=== PATIENT | female | born 1995 | race African-American/Black ===

== ENCOUNTER 2020-01-05 21:23 | Emergency (ER) | payer OTHER ==
[~2020-01-05] VITALS: Ht 157.5 cm; Wt 43.6 kg
[2020-01-06 00:29] LABS: BASO # 0.1 10^3/uL (0.0-0.2); BASO % 0.7 % (0.0-1.0); EOS # 0.2 10^3/uL (0.0-0.5); EOS % 2.5 % (0.0-3.0); HEMATOCRIT 31.1 % (36.0-47.0); HEMOGLOBIN 9.9 g/dl (12.0-15.5); LYMPH # 2.3 10^3/uL (1.5-5.0); LYMPH % 32.5 % (24.0-44.0); MEAN CORPUSCULAR HEMOGLOBIN 21.1 pg (27.0-33.0); MEAN CORPUSCULAR HGB CONC 31.8 g/dl (32.0-36.5); MEAN CORPUSCULAR VOLUME 66.3 fl (80.0-96.0); MONO # 0.6 10^3/uL (0.0-0.8); MONO % 8.8 % (0.0-5.0); NEUTROPHILS # 3.9 10^3/uL (1.5-8.5); NEUTROPHILS % 55.2 % (36.0-66.0); PLATELET COUNT, AUTOMATED 216 10^3/uL (150-450); RED BLOOD COUNT 4.69 10^6/uL (4.00-5.40); WHITE BLOOD COUNT 7.1 10^3/uL (4.0-10.0)
[2020-01-06 00:49] LABS: BLOOD UREA NITROGEN 18 MG/DL (7-18); CALCIUM LEVEL 9.2 MG/DL (8.5-10.1); CARBON DIOXIDE LEVEL 25 MEQ/L (21-32); CHLORIDE LEVEL 110 MEQ/L (98-107); CREATININE FOR GFR 0.76 MG/DL (0.55-1.30); GLOMERULAR FILTRATION RATE > 60.0 (>60); GLUCOSE, FASTING 83 MG/DL (70-100); POTASSIUM SERUM 4.2 MEQ/L (3.5-5.1); SODIUM LEVEL 139 MEQ/L (136-145)
[2020-01-06 01:00] LABS: HCG, SERUM QUALITATIVE POSITIVE (NEGATIVE)
[2020-01-06] MEDS ORDERED: ACETAMINOPHEN SUSP DYE FREE 160 MG/5 ML UDC PO ONE (01:00)
[2020-01-06 02:26] LABS: HCG, SERUM QUANTITATIVE 16555 MIU/ML
[2020-01-06 02:36] VITALS: BP 122/68
== END 2020-01-06 02:37 | disposition home or self-care (01) ==
LOC: M ED 21:23
DX: O26.851 Spotting complicating pregnancy, first trimester (principal); O26.891 Other specified pregnancy related conditions, first trimester; R10.2 Pelvic and perineal pain; O99.011 Anemia complicating pregnancy, first trimester; O99.511 Diseases of the respiratory system complicating pregnancy, first trimester; O99.351 Diseases of the nervous system complicating pregnancy, first trimester; Z3A.01 Less than 8 weeks gestation of pregnancy

== ENCOUNTER 2020-02-11 13:38 | Emergency (ER) | payer OTHER ==
[~2020-02-11] VITALS: Ht 157.5 cm; Wt 43.2 kg
[2020-02-11] MEDS ORDERED: EPIP0.3I2 IM (13:54)
[2020-02-11] MEDS ORDERED: ACETAMINOPHEN TAB 650MG DOSE (2X325MG) PO ONE (14:15)
[2020-02-11] MEDS ORDERED: ONDANSETRON 4MG/2ML VIAL IV ONE (14:15)
[2020-02-11] MEDS ORDERED: NS 1,000 ML IV ONE (14:15)
[2020-02-11 14:17] LABS: BASO % 0.4 % (0.0-1.0); EOS # 0.1 10^3/uL (0.0-0.5); EOS % 2.2 % (0.0-3.0); HEMATOCRIT 31.2 % (36.0-47.0); HEMOGLOBIN 9.9 g/dl (12.0-15.5); LYMPH # 1.5 10^3/uL (1.5-5.0); LYMPH % 28.8 % (24.0-44.0); MEAN CORPUSCULAR HGB CONC 31.7 g/dl (32.0-36.5); MEAN CORPUSCULAR VOLUME 66.1 fl (80.0-96.0); MONO # 0.5 10^3/uL (0.0-0.8); MONO % 8.9 % (0.0-5.0); NEUTROPHILS % 59.3 % (36.0-66.0); PLATELET COUNT, AUTOMATED 172 10^3/uL (150-450); RED BLOOD COUNT 4.72 10^6/uL (4.00-5.40)
[2020-02-11 14:56] LABS: ALBUMIN 3.4 GM/DL (3.2-5.2); ALT/SGPT 10 U/L (12-78); BILIRUBIN,DIRECT < 0.1 MG/DL (0.0-0.2); BILIRUBIN,TOTAL 0.1 MG/DL (0.2-1.0); BLOOD UREA NITROGEN 8 MG/DL (7-18); CALCIUM LEVEL 8.6 MG/DL (8.5-10.1); CARBON DIOXIDE LEVEL 23 MEQ/L (21-32); CHLORIDE LEVEL 108 MEQ/L (98-107); CREATININE FOR GFR 0.51 MG/DL (0.55-1.30); GLOMERULAR FILTRATION RATE > 60.0 (>60); GLUCOSE, FASTING 76 MG/DL (70-100); HCG, SERUM QUANTITATIVE 89654 MIU/ML; POTASSIUM SERUM 3.9 MEQ/L (3.5-5.1); SODIUM LEVEL 137 MEQ/L (136-145); TOTAL PROTEIN 6.5 GM/DL (6.4-8.2)
--- NOTE | 2020-02-11 15:49 | REPVR ---
PROCEDURE INFORMATION: Exam: US First Trimester, Transabdominal Exam date and time: 02/11/2020 3:33 PM Age: 24 years old Clinical indication: Lmp or gestational age (in weeks): 11; Antepartum complications; Other: Spotting; ; Additional info: Vaginal bleeding TECHNIQUE: Imaging protocol: Real-time transabdominal obstetrical ultrasound of the maternal pelvis and a first trimester , less than 14 weeks 0 days, with image documentation. COMPARISON: No relevant prior studies available. FINDINGS: Gestation: Single live intrauterine . Embryonic/ heart rate: The heart rate was measured to be 152 bpm. BIOMETRY: Gestational age (AUA): Gestational age as measured by crown-rump length is 11 weeks 6 days. MATERNAL: Right adnexa: Right ovary 1.9 x 1.6 x 1.6 cm. Left adnexa: There is a 1.2 cm simple appearing cyst within the left ovary. Left ovary 2.4 x 3.7 x 2.1 cm. IMPRESSION: 1. Single live intrauterine . 2. Gestational age as measured by crown-rump length is 11 weeks 6 days. Electronically signed by: Keon Mackey On 02/11/2020 15:48:32 PM
[2020-02-11 16:05] VITALS: BP 120/56
[2020-02-11] MEDS ORDERED: ACETAMINOPHEN 325 MG TAB PO ONE (16:15)
== END 2020-02-11 16:20 | disposition home or self-care (01) ==
LOC: EDBD 13:38 → M ED 13:38
DX: O20.8 Other hemorrhage in early pregnancy (principal); Z3A.11 11 weeks gestation of pregnancy; Z87.59 Personal history of other complications of pregnancy, childbirth and the puerperium
CPT/HCPCS: 76801; 80048; 80076; 84702; 85025; 86850; 86900; 86901; 96361; 96374; 99284; J2405

== ENCOUNTER 2020-02-29 14:33 | Emergency (ER) | payer OTHER ==
[~2020-02-29] VITALS: Ht 157.5 cm; Wt 44.8 kg
[2020-02-29 14:33] VITALS: BP 111/58
[~2020-02-29 14:33] MED LIST: EPIP0.3I2 IM
[2020-02-29] MEDS ORDERED: PREN27TA3 (14:43)
[2020-02-29] MEDS ORDERED: ACETAMINOPHEN 500 MG TAB As Ordered ONE (16:43)
[2020-02-29] MEDS ORDERED: ACETAMINOPHEN 500 MG TAB PO ONE (16:45)
[2020-02-29] MEDS ORDERED: AMOX500C PO (17:22)
[2020-02-29] MEDS ORDERED: AMOXICILLIN 500 MG CAP PO ONE (17:30)
== END 2020-02-29 18:25 | disposition home or self-care (01) ==
LOC: M ED 14:33
DX: J02.0 Streptococcal pharyngitis (principal); J45.909 Unspecified asthma, uncomplicated; D57.3 Sickle-cell trait; Z91.02 Food additives allergy status; Z87.01 Personal history of pneumonia (recurrent); Z87.09 Personal history of other diseases of the respiratory system
CPT/HCPCS: 87880; 99283; U0003

== ENCOUNTER 2020-06-13 20:27 | Outpatient (CLI) | payer OTHER ==
[~2020-06-13] VITALS: Ht 157.5 cm; Wt 46.3 kg
[~2020-06-13 20:27] MED LIST changes: +AMOX500C PO; +PREN27TA3
[2020-06-13 20:34] VITALS: BP 106/53
[2020-06-13 22:38] LABS: APPEARANCE, URINE CLEAR (CLEAR); BACTERIA, URINE AUTO NEGATIVE (NEGATIVE); BILIRUBIN, URINE AUTO NEGATIVE (NEGATIVE); BLOOD, URINE BLOOD 1+ (NEGATIVE); COLOR, URINE STRAW (YELLOW); GLUCOSE, URINE (UA) AUTO NEGATIVE (NEGATIVE); KETONE, URINE AUTO TRACE mg/dL (NEGATIVE); LEUKOCYTE ESTERASE, URINE AUTO NEGATIVE (NEGATIVE); NITRITE, URINE AUTO NEGATIVE (NEGATIVE); PROTEIN, URINE AUTO NEGATIVE (NEGATIVE); RBC, URINE AUTO 1 /HPF (0-3); SPECIFIC GRAVITY URINE AUTO 1.004 (1.002-1.035); SQUAMOUS EPITHELIAL CELL UR AU 0 /HPF (0-6); UROBILINOGEN, URINE AUTO 0.2 mg/dL (0.0-2.0); WBC, URINE AUTO 0 /HPF (0-3)
--- NOTE | 2020-06-20 11:15 | IPNPDOC ---
Text Note Date of Service The patient was seen on 06/13/20. LATE ENTRY DUE TO ENCOUNTER NOTE FILED ON WRONG PATIENT CHART NOTE The patient was seen on 06/13/20. NOTE 22yo at 28+5wks presenting to L&D for c/o gush of fluid at 1930 and onset of ctx's. She reports the ctx's actually started 2 days ago after she traveled by bus from [place]. She has not been seen for care since 03/29/2020 at 17w6d as she reports that she has been in [place]. Denies DFM or VB. Reports she was recently treated for BV and yeast infections with antibiotics and diflucan that she finished earlier this week Vitals: normotensive, afebrile NST: appropriate for gestational age Gracey: initially noted to have irregular ctx's that resolved with IV fluid hydration PE: Gen: patient appearing anxious resting in bed, in NAD, AAOx3 HEENT: NC/AT, airway patent and self-maintained RESP: no exaggerated respiratory effort appreciated CARDS: well-perfused, no edema : no pooling, neg valsalva, no abnml vaginal discharge, SVE closed/thick/high Ext: no edema, no calf tenderness Labs: microscopy negative UA: negative TAUS: breech presentation, anterior/fundal placenta, +FM, DEIRDRE 18.3cm, +FCA seen A/P: 22yo at 28+5wks presenting for c/o LOF and ctx's. Patient found to have intact membranes on clinical examination. Reassuring status. Ctx's resolved with IV hydration and reassuring that cervix was closed on examination. Patient counseled on ensuring adequate hydration and encouraged pelvic rest Patient has had poor care due to lack of attendance to appointments, counseled to schedule COB appt in the next week Patient counseled on PTL precautions, FKCs Patient dispositioned home in stable condition. All questions answered. Med rec done. TOSHA CAICEDO DO Jun 13, 2020 22:54 TOSHA CAICEDO DO Jun 20, 2020 11:15
== END 2020-06-13 23:00 | disposition home or self-care (01) ==
LOC: M LDO 20:27 → M LDI 20:32 → UNDOADMIN 20:32 → M LDO 23:00
DX: O47.03 False labor before 37 completed weeks of gestation, third trimester (principal); Z79.2 Long term (current) use of antibiotics
CPT/HCPCS: 76815; 81001; 87086; G0378; G0463

== ENCOUNTER 2020-06-30 16:08 | Outpatient (CLI) | payer OTHER ==
[~2020-06-30] VITALS: Ht 157.5 cm; Wt 49.5 kg
[2020-06-30 16:28] VITALS: BP 106/57
[2020-06-30 17:03] LABS: HEMATOCRIT 27.5 % (36.0-47.0); HEMOGLOBIN 8.6 g/dl (12.0-15.5); MEAN CORPUSCULAR HEMOGLOBIN 21.3 pg (27.0-33.0); MEAN CORPUSCULAR HGB CONC 31.3 g/dl (32.0-36.5); MEAN CORPUSCULAR VOLUME 68.2 fl (80.0-96.0); PLATELET COUNT, AUTOMATED 151 10^3/uL (150-450); RED BLOOD COUNT 4.03 10^6/uL (4.00-5.40); WHITE BLOOD COUNT 6.4 10^3/uL (4.0-10.0)
[2020-06-30 17:05] LABS: APPEARANCE, URINE HAZY (CLEAR); BACTERIA, URINE AUTO 1+ (NEGATIVE); BILIRUBIN, URINE AUTO NEGATIVE (NEGATIVE); BLOOD, URINE BLOOD NEGATIVE (NEGATIVE); COLOR, URINE YELLOW (YELLOW); GLUCOSE, URINE (UA) AUTO NEGATIVE (NEGATIVE); KETONE, URINE AUTO NEGATIVE (NEGATIVE); LEUKOCYTE ESTERASE, URINE AUTO TRACE (NEGATIVE); MUCUS, URINE SMALL (NEGATIVE); NITRITE, URINE AUTO NEGATIVE (NEGATIVE); PROTEIN, URINE AUTO NEGATIVE (NEGATIVE); RBC, URINE AUTO 0 /HPF (0-3); SPECIFIC GRAVITY URINE AUTO 1.016 (1.002-1.035); SQUAMOUS EPITHELIAL CELL UR AU 6 /HPF (0-6); WBC, URINE AUTO 1 /HPF (0-3)
[2020-06-30 17:25] LABS: ALBUMIN 2.7 GM/DL (3.2-5.2); ALT/SGPT 17 U/L (12-78); BILIRUBIN,TOTAL 0.2 MG/DL (0.2-1.0); BLOOD UREA NITROGEN 7 MG/DL (7-18); CARBON DIOXIDE LEVEL 24 MEQ/L (21-32); CHLORIDE LEVEL 111 MEQ/L (98-107); CREATININE FOR GFR 0.81 MG/DL (0.55-1.30); GLOMERULAR FILTRATION RATE > 60.0 (>60); GLUCOSE, FASTING 83 MG/DL (70-100); SODIUM LEVEL 140 MEQ/L (136-145); TOTAL PROTEIN 5.8 GM/DL (6.4-8.2)
[2020-06-30] MEDS ORDERED: FLUCONAZOLE 50MG TABLET PO ONE (18:10)
--- NOTE | 2020-06-30 18:10 | IPNPDOC ---
Obstetrical Progress Note Date of Service Jun 30, 2020 Subjective Patient presents today for vaginal discharge and cramps. She reports she has had yellow mucous discharge x1wk that has no odors. She has had cramps since last night that occur every 10 minutes and are painful. She denied VB, LOF, decreased FM. She denied n/v/d, cp, sob, padron, visual changes, f/c, urinary sx. Objective Vital Signs Date Time Temp Pulse Resp B/P (MAP) Pulse Ox O2 Delivery O2 Flow Rate FiO2 06/30/20 16:28 98.6 90 16 106/57 (73) Assessment Heart Rate (FHR): 130 Variability: Moderate Accelerations: Positive Decelerations: None Heart Rate Tracing: Category I Tocometer Contractions: Yes Frequency: irregular Sterile Vaginal Examination Dilation: 1cm Station: -3 Cervical Consistency: Firm Cervical Position: Posterior Postion/Presentation: Breech presentation (by US) Assessment and Plan Additional Comments 24yo at 31+1 presents for vaginal discharge, contractions, and loose stool since last night. VS normal. CAT I tracing. SVE 1/T/H and unchanged on 2h repeat. JASMIN/WP with +budding yeast. UA WNL. GC negative. CBC/CMP WNL. UCX/GBS sent. CL 3.6cm without funneling or changes with valsalva. TAUS with MVP 4.5cm baby srhuthi breech. PTL unlikely at this time. As she is afebrile and has normal electrolytes and no signs of dehydration will continue to monitor loose stool as outpatient. Patient notably has a complicated (reported sickle cell disease with trait on testing but report of prior crisis and IOL for sickle cell, undweweight, chronic opioid use, seizure disorder, bipolar with history of suicide attempt) and is non-compliant with her appointments. Today she reported she takes no medications (ie not taking her PNV, additional folic acid for her multiple comorbidities requiring it). 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 She did not see the neurologist that was consulted for her seizure disorder. She did not get the labs ordered at her last visit. I did do a CBC today and her Hbg is 8. She reports that she was in [place] so she could not come to appointments. When asked if she received any care there she said no. I reminded her how important it is to the safety of her and her baby that she come to appointments. Not proceeding with the recommendations made for her could result in maternal or harm, , or anomalies. She said she has no appointments scheduled. I told her to call the clinic in the morning to schedule an appointment ABI. - fluconazole for vaginal candidiasis - gave strict PTL return precautions and routine OB return precations - patient also to return if loose stool worsens, educated on hydration and BRAT diet - patient to call and schedule next available appointment in the morning MARLO Sosa DO Jun 30, 2020 18:10
[2020-06-30 19:00] LABS: CHLAMYDIA DNA AMPLIFICATION NEGATIVE (NEGATIVE); GC DNA AMPLIFICATION NEGATIVE (NEGATIVE)
== END 2020-06-30 19:40 | disposition home or self-care (01) ==
LOC: M LDO 16:08
PROVIDERS: ATTEND Obstetrics & Gynecology
DX: O09.33 Supervision of pregnancy with insufficient antenatal care, third trimester (principal); O99.343 Other mental disorders complicating pregnancy, third trimester; O99.323 Drug use complicating pregnancy, third trimester; O99.353 Diseases of the nervous system complicating pregnancy, third trimester; F31.9 Bipolar disorder, unspecified; F11.20 Opioid dependence, uncomplicated; R56.9 Unspecified convulsions; Z3A.31 31 weeks gestation of pregnancy
CPT/HCPCS: 36415; 76815; 80053; 81001; 85027; 87081; 87088; 87186; 87491; 87591; G0378; G0463

== ENCOUNTER 2020-08-01 00:13 | Outpatient (CLI) | payer OTHER ==
[~2020-08-01] VITALS: Ht 157.5 cm; Wt 53.2 kg
[2020-08-01 02:16] VITALS: BP 101/65
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
== END 2020-08-01 03:21 | disposition home or self-care (01) ==
LOC: M LDO 00:13
PROVIDERS: ATTEND Registered Nurse Maternal Newborn
DX: O36.8130 Decreased fetal movements, third trimester, not applicable or unspecified (principal); Z3A.35 35 weeks gestation of pregnancy; O24.419 Gestational diabetes mellitus in pregnancy, unspecified control; O99.013 Anemia complicating pregnancy, third trimester; D64.9 Anemia, unspecified; O26.13 Low weight gain in pregnancy, third trimester
CPT/HCPCS: 59025; G0378; G0463

== ENCOUNTER 2020-08-02 11:25 | Emergency (ER) | payer OTHER ==
[~2020-08-02] VITALS: Ht 157.5 cm; Wt 55.7 kg
[2020-08-02 12:22] LABS: BASO % 0.5 % (0.0-1.0); EOS # 0.2 10^3/uL (0.0-0.5); EOS % 2.4 % (0.0-3.0); HEMATOCRIT 27.1 % (36.0-47.0); HEMOGLOBIN 8.2 g/dl (12.0-15.5); LYMPH # 1.8 10^3/uL (1.5-5.0); LYMPH % 27.2 % (24.0-44.0); MEAN CORPUSCULAR HEMOGLOBIN 20.1 pg (27.0-33.0); MEAN CORPUSCULAR HGB CONC 30.3 g/dl (32.0-36.5); MEAN CORPUSCULAR VOLUME 66.4 fl (80.0-96.0); MONO # 0.7 10^3/uL (0.0-0.8); MONO % 9.8 % (2.0-8.0); NEUTROPHILS # 3.9 10^3/uL (1.5-8.5); PLATELET COUNT, AUTOMATED 147 10^3/uL (150-450); RED BLOOD COUNT 4.08 10^6/uL (4.00-5.40); WHITE BLOOD COUNT 6.7 10^3/uL (4.0-10.0)
[2020-08-02 12:44] LABS: ALBUMIN 2.6 GM/DL (3.2-5.2); ALT/SGPT 19 U/L (12-78); BILIRUBIN,DIRECT < 0.1 MG/DL (0.0-0.2); BILIRUBIN,TOTAL 0.2 MG/DL (0.2-1.0); TOTAL PROTEIN 5.5 GM/DL (6.4-8.2)
[2020-08-02] MEDS ORDERED: ACETAMINOPHEN 325 MG TAB PO ONE (12:45)
--- NOTE | 2020-08-02 13:08 | REP ---
INDICATION: 35+6wks, acute cardiac symptoms, NEEDS GROWTH SCAN. COMPARISON: Only available of study 02/11/2020 at 11 weeks 6 days then. She would be 35 weeks 6 days by a new shallow ultrasound with EDC 08/31/2020 TECHNIQUE: Transabdominal images were evaluated FINDINGS: Scanning demonstrates a viable single intrauterine gestation in a cephalic lie. motion is observed and heart rate is recorded at 149 beats per minute. An anterior, grade III placenta is seen without evidence of previa. Amniotic fluid is subjectively normal and his DEIRDRE 12.5 cm, normal range 7.7-24.9. Closed cervical length is measured at 4.1 cm transabdominally. No extrauterine abnormality is observed. No anomaly is seen. The following anatomic structures are identified and felt to be sonographically unremarkable: Cranial vault, lateral ventricles, choroid plexus, thalami, falx, cerebellum, cisterna magna, lungs, four-chamber heart with regular rhythm, diaphragm, left-sided stomach bubble, abdominal wall, kidneys, spine and three-vessel cord were all seen and unremarkable. There is no evidence of a nuchal cord. Exam was somewhat limited due to advanced gestational age in crowding. Umbilical artery Doppler shows SD ratio 2.59 with normal forward diastolic flow and resistive index of 0.61. Biometry chart: BPD 8.6 cm; 34 weeks 4 days Head circumference 32.1 cm; 36 weeks 1 days Abdominal circumference 32 cm; 36 weeks 0 days Femur length 6.7 cm; 34 weeks 4 days Humeral length 6.0 cm; 34 weeks 5 days HC/AC ratio normal 1.0 Cephalic index normal 0.74 Estimated weight 2860 grams, 5 pounds 14 ounces, 38th percentile for 35 weeks 6 days. IMPRESSION: Viable single intrauterine gestation at 35 weeks 1 days by today's composite sonographic criteria. Expected gestational age estimate based on prior sonography is 35 weeks is 6 days. ORLNADO by prior sonography 08/31/2020. No anomaly. <Electronically signed by Say Aragon > 08/02/20 [id number]
--- NOTE | 2020-08-02 13:36 | IPNPDOC ---
Text Note Date of Service The patient was seen on 08/02/20. NOTE Reviewed ultrasound. HC 24.7%ile, AC 61.4%ile. FL 13.6%ile. EFW 57%ile. No growth restriction. Normal UA dopplers. VS,Fishbone, I+O VS, Fishbone, I+O Laboratory Tests 08/02/20 12:10 Vital Signs Date Time Temp Pulse Resp B/P (MAP) Pulse Ox O2 Delivery O2 Flow Rate FiO2 08/02/20 13:15 90/54 (66) 08/02/20 13:10 80 100 08/02/20 12:23 Room Air 08/02/20 11:33 98.2 20 MARLO CLIFTON DO Aug 02, 2020 13:36
--- NOTE | 2020-08-02 14:29 | REP ---
INDICATION: LUE pain; r/o DVT. COMPARISON: None. TECHNIQUE: Left upper extremity duplex venous sonography. FINDINGS: The internal jugular, axillary, brachial, basilic, and cephalic veins are anechoic and compressible in the left upper extremity. Color flow imaging is homogeneous. Spectral Doppler interrogation is unremarkable. There is no evidence of left upper extremity venous thrombosis. IMPRESSION: Negative left upper extremity duplex venous ultrasound. No evidence of venous thrombosis. <Electronically signed by Mikey Galvin > 08/02/20 [id number]
--- NOTE | 2020-08-02 15:39 | REP ---
INDICATION: SOB. COMPARISON: None. TECHNIQUE: Portable upright chest radiograph. FINDINGS: The EKG monitoring electrodes are seen. There is hair or clothing artifact overlying the right shoulder. The lungs are well inflated and clear. The pleural angles are sharp. Cardiomediastinal silhouette is unremarkable. No acute bony abnormality is seen. IMPRESSION: Negative portable AP chest radiograph. <Electronically signed by Mikey Galvin > 08/02/20 [id number]
[2020-08-02 17:18] VITALS: BP 97/52
--- NOTE | 2020-08-02 18:01 | ECGEPIP ---
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
== END 2020-08-02 17:30 | disposition home or self-care (01) ==
LOC: M ED 11:25
DX: R06.01 Orthopnea (principal); M79.602 Pain in left arm; J45.909 Unspecified asthma, uncomplicated; F31.9 Bipolar disorder, unspecified; R56.9 Unspecified convulsions; Z3A.35 35 weeks gestation of pregnancy; Z91.02 Food additives allergy status

== ENCOUNTER 2020-08-17 19:53 | Inpatient (IN) | payer OTHER ==
[2020-08-17] VITALS (18 sets, daily range): BP systolic 102–123; BP diastolic 51–88
[2020-08-17] MEDS ORDERED: LR 1,000 ML IV SCH (21:10)
[2020-08-17] MEDS ORDERED: LIDOCAINE 1% MDV 20ML VIAL INFIL PRN (21:10)
[2020-08-17] MEDS ORDERED: OXYTOCIN DRIP 30 UNITS in IV 1 EA IV PRN (21:10)
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
[2020-08-17 21:40] LABS: HEMATOCRIT 29.9 % (36.0-47.0); MEAN CORPUSCULAR HEMOGLOBIN 19.4 pg (27.0-33.0); MEAN CORPUSCULAR HGB CONC 30.1 g/dl (32.0-36.5); MEAN CORPUSCULAR VOLUME 64.4 fl (80.0-96.0); PLATELET COUNT, AUTOMATED 167 10^3/uL (150-450); RED BLOOD COUNT 4.64 10^6/uL (4.00-5.40); WHITE BLOOD COUNT 10.6 10^3/uL (4.0-10.0)
[2020-08-17] MEDS ORDERED: FENTANYL 2MCG/ML ROPIVACAINE 0.2% IN 0.9% NACL 100ML IVBAG As Ordered ONE (22:08)
[2020-08-17] MEDS ORDERED: OXYTOCIN 30 UNITS IN 0.9% NaCl 500ML IV BAG (J2590) As Ordered ONE (22:08)
[2020-08-17] MEDS ORDERED: diphenhydrAMINE 50MG/ML VIAL (J1200) IV PRN (23:30)
[2020-08-17] MEDS ORDERED: EPIDURAL/PCA KEYS XX PRN (23:30)
[2020-08-17] MEDS ORDERED: EPIDURAL COMMENT XX SCH (23:30)
[2020-08-17] MEDS ORDERED: REFRIGERATOR IV KEYS XX PRN (23:30)
[2020-08-17] MEDS ORDERED: ONDANSETRON 4MG/2ML VIAL IV PRN (23:30)
[2020-08-17] MEDS ORDERED: FENTANYL/ROPIVACAINE/NACL BAG 100 ML EPIDURAL SCH (23:30)
[2020-08-17] MEDS ORDERED: ePHEDrine SULFATE 25 MG/5 ML(5MG/ML) SYRINGE IV PRN (23:30)
[2020-08-17] MEDS ORDERED: LACTATED RINGER'S 1000 ML IV PRN (23:30)
[2020-08-17] MEDS ORDERED: NALOXONE INJ 0.4MG/1ML VIAL (J2310 PER 1MG) IV PRN (23:30)
[2020-08-18] VITALS (13 sets, daily range): BP systolic 98–134; BP diastolic 50–68
[2020-08-18 00:52] LABS: CORD GAS ABE V -7.5; CORD GAS HCO3 V 18.7 MEQ/L; CORD GAS O2 SAT V 64.8 %; CORD GAS PCO2 V 40.4 mmHg; CORD GAS PH V 7.284 UNITS; CORD GAS PO2 V 30.8 mmHg; CORD GAS SBC V 17.8 MEQ/L
[2020-08-18 00:53] LABS: CORD GAS ABE A -6.6; CORD GAS HCO3 A 21.4 MEQ/L; CORD GAS O2 SAT A 39.8 %; CORD GAS PCO2 A 52.6 mmHg; CORD GAS PH A 7.228 UNITS; CORD GAS PO2 A 22.5 mmHg; CORD GAS SBC A 17.9 MEQ/L
[2020-08-18] MEDS ORDERED: IBUPROFEN 600MG TAB PO PRN (01:10)
[2020-08-18] MEDS ORDERED: DIBUCAINE 1% OINTMENT 30GM TOP PRN (01:10)
[2020-08-18] MEDS ORDERED: DOCUSATE SODIUM 100MG CAPSULE PO PRN (01:10)
[2020-08-18] MEDS ORDERED: ACETAMINOPHEN TAB 650MG DOSE (2X325MG) PO PRN (01:10)
--- NOTE | 2020-08-18 01:33 | DNPDOC ---
[facility] Delivery Note Delivery Note DATE OF DELIVERY: 08/18/20 PREDELIVERY DIAGNOSIS: 38+1/7 weeks' gestation and labor. Category II heart rate tracing. Sickle cell and a-thalassemia carrier. Desire for immediate contraception. POST DELIVERY DIAGNOSIS: Same PROCEDURE: Vacuum assisted vaginal delivery INDUSTRIAL PRODUCTION MANAGER: Dr. Ben Clifton DO ANESTHESIA: epidural ESTIMATED BLOOD LOSS: 200 mL. FINDINGS: 2840g, Score 9/9, nuchal cord times 1 tight. DELIVERY SUMMARY: Ms. Lomax is a 24yo who presented at 38+0 in early labor and was noted to have a CAT II tracing for intermittent prolonged decelerations, variabile decelerations, and late decelerations. She overall had good variability and return to baseline. She rapidly progressed on her own to 6/C/0 and recieved an epidural. She was then ruptured and she rapidly progressed to AL/C/+1. The baby began to have recurrent variable decelerations and 4min deceleration. Decision made to attempt to reduce anterior lip, which was successful. The patient began to push and decelerations to the 30s were noted and return to baseline became increasingly prolonged. At this point I re-discussed with the patient the risks, benefits, and alternatives to an operative delivery and she agreed to the procedure. The baby was determined to be in the DAVEY position. The cervix was determined to be completely dilated and the station was +2. The urethra was cleansed with iodine and the bladder was drained. The vacuum was applied approx 2 finger breaths anterior to the posterior fontanelle and the suction applied to the green zone. Care was taken to ensure vaginal tissue was not entrapped. With good maternal effort the baby was delivered in the DAVEY position, during the pushing process a total of 3 pop-offs occurred (the final being at the time of delivery). Ritgans maneuver was used to aid the remainder of the delivery of the head. A tight nuchal cord x1 was reduced at the perineum. The shoulders and body delivered without difficulty. The baby had good tone, spontaneous movement, and cry. The cord was clamped x2 and cut by the provider. Cord gasses and blood were obtained. The placenta delivered in-tact with ruth downward traction. It was sent for pathology. there were no visible lacerations. The uterus was firm and bleeding from the uterus scant. The anterior lip of the cervix had a small raw area with slight oozing that was reinforced with 3-0 vicryl rapid. The sponge, lap and needle counts were correct. There were no complications and the patient tolerated the procedure well. On examination of the baby a singular circular area of swelling was noted just anterior and slightly to the left of the posterior fontanelle. There were no lacerations or bleeding. BEN CLIFTON DO Aug 18, 2020 01:33
[2020-08-18] MEDS: IBUPROFEN 800 MG TAB PO PRN ×2 (01:42→16:42)
[2020-08-18] MEDS: ACETAMINOPHEN 500 MG TAB PO PRN ×2 (05:32→17:49)
[2020-08-18] MEDS: PRENATAL VITAMINS CHEWABLE TABLET PO SCH (09:30)
[2020-08-18] MEDS: FERROUS SULFATE 325MG TAB PO SCH (09:30)
[2020-08-19 05:49] VITALS: BP 97/54
--- NOTE | 2020-08-19 06:54 | IPNPDOC ---
Progress Note Date of Service: Aug 19, 2020 Progress Note Hanna is a 24 yo G3 now P2 who underwent an uncomplicated VAVD yesterday in the practice director hours after being admitted for early labor and a Cat II FHR tracing. Hanna reports overall feeling well this AM. She is ambulating, voiding, tolerating a regular diet. Her lochia is minimal. Pain is controlled. Vitals - VSS, afebrile, normotensive, non tachycardic General - AAOX3, sitting up in bed, NAD Abdomen - Fundus firm at U-2. No fundal tenderness Extremities - No edema Hanna is doing well and is making an appropriate recovery. Continue routine care. Anticipate discharge home tomorrow. Gaudencio VS, I&O, 24H, Shaggy Vital Signs/I&O Vital Signs Date Time Temp Pulse Resp B/P (MAP) Pulse Ox O2 Delivery O2 Flow Rate FiO2 08/19/20 05:49 98.6 60 18 97/54 (68) 99 Room Air YVES ARREGUIN DO Aug 19, 2020 06:54
[2020-08-19] MEDS: PRENATAL VITAMINS CHEWABLE TABLET PO SCH (08:10)
[2020-08-19] MEDS: FERROUS SULFATE 325MG TAB PO SCH (08:11)
[2020-08-19] MEDS: IBUPROFEN 800 MG TAB PO PRN ×2 (12:10→21:27)
[2020-08-19 18:00] VITALS: BP 104/53
[2020-08-20 06:00] VITALS: BP 102/52
[2020-08-20] MEDS ORDERED: IBUP80TA PO (08:05)
[2020-08-20] MEDS ORDERED: ACET-683 PO (08:05)
--- NOTE | 2020-08-20 08:08 | DS.PDOC ---
Discharge Summary General Date of Admission Aug 17, 2020 at 20:27 Date of Discharge Aug 20, 2020 Discharge Summary HOSPITAL COURSE: Ms. Lomax is a 24 yo G3 now P2 who underwent an uncomplicated VAVD on 18Aug2020 after being admitted for active labor and a Cat II tracing. Her course was unremarkable. On her day of discharge she met all appropriate discharge criteria. She was ambulating, voiding, tolerating a regular diet, and had minimal lochia. DISCHARGE MEDICATIONS: Please see below. ALLERGIES: Please see below. PHYSICAL EXAMINATION ON DISCHARGE: VITAL SIGNS: Please see below. GENERAL: AAOX3, NAD ABDOMINAL EXAMINATION: Fundus firm at U-2. No fundal tenderness EXTREMITIES: No edema PSYCHIATRIC EXAMINATION: Affect appropriate LABORATORY DATA: Please see below. ACTIVITY: Pelvic rest for 6 weeks DIET: Regular DISCHARGE PLAN: Discharge home or to boarder DISPOSITION: Discharge home on 17Aug2020. DISCHARGE INSTRUCTIONS: 1. Nothing in the vagina for 6 weeks ITEMS TO FOLLOWUP ON ON OUTPATIENT: 1. Call to schedule a visit for 6 weeks post delivery DISCHARGE CONDITION: Stable. TIME SPENT ON DISCHARGE: Greater than 20 minutes. Yves Ratliff DO Vital Signs/I&Os Vital Signs Date Time Temp Pulse Resp B/P (MAP) Pulse Ox O2 Delivery O2 Flow Rate FiO2 08/20/20 06:00 98.4 61 18 102/52 (69) 08/19/20 18:00 99 08/19/20 05:49 Room Air Discharge Medications Scheduled PRN Acetaminophen (Acetaminophen) 500 Mg Tablet, 1,000 MG PO Q6HP PRN for PAIN LEVEL 6-10 Ibuprofen (Ibuprofen) 800 Mg Tablet, 800 MG PO Q8HP PRN for PAIN LEVEL 6-10 Miscellaneous Medications Pnv,Calcium 72/Iron/Folic Acid ( Vitamin Plus Low Iron) 1 Each Tablet, (Reported) Allergies Coded Allergies: chocolate flavor (Verified Allergy, Severe, ANAPHYLAXIS, 02/11/20) YVES RATLIFF DO Aug 20, 2020 08:08
[2020-08-20] MEDS: IBUPROFEN 800 MG TAB PO PRN (08:33)
[2020-08-20] MEDS: FERROUS SULFATE 325MG TAB PO SCH (09:00)
[2020-08-20] MEDS: PRENATAL VITAMINS CHEWABLE TABLET PO SCH (09:00)
== END 2020-08-20 11:20 | disposition home or self-care (01) | DRG 807 ==
LOC: M LDO 19:53 → M LDI 20:27 → M OBS 08-18 03:30
PROVIDERS: ADMIT Obstetrics & Gynecology; ATTEND Obstetrics & Gynecology
PROC: 10D07Z6 Extraction of Products of Conception, Vacuum, Via Natural or Artificial Opening (ICD-10-PCS; principal; 2020-08-18)
DX: O69.1XX0 Labor and delivery complicated by cord around neck, with compression, not applicable or unspecified (principal); Z37.0 Single live birth; Z3A.38 38 weeks gestation of pregnancy; O76 Abnormality in fetal heart rate and rhythm complicating labor and delivery; Z91.19 Patient's noncompliance with other medical treatment and regimen; D57.3 Sickle-cell trait; O99.02 Anemia complicating childbirth; Z91.018 Allergy to other foods

== ENCOUNTER 2020-11-09 21:09 | Emergency (ER) | payer OTHER ==
[~2020-11-09] VITALS: Ht 157.5 cm; Wt 45.5 kg
[~2020-11-09 21:09] MED LIST changes: +ACET-683 PO; +IBUP80TA PO
[2020-11-10] MEDS ORDERED: IBUPROFEN 800 MG TAB PO ONE (00:40)
[2020-11-10 01:11] VITALS: BP 118/61
== END 2020-11-10 01:20 | disposition home or self-care (01) ==
LOC: M ED 21:09
DX: B34.1 Enterovirus infection, unspecified (principal); B34.8 Other viral infections of unspecified site; Z91.018 Allergy to other foods

== ENCOUNTER 2020-12-08 11:00 | Emergency (ER) | payer OTHER ==
[~2020-12-08] VITALS: Ht 157.5 cm; Wt 43.6 kg
[2020-12-08 13:12] LABS: BASO % 0.8 % (0.0-1.0); EOS # 0.2 10^3/uL (0.0-0.5); HEMATOCRIT 36.9 % (36.0-47.0); HEMOGLOBIN 11.6 g/dl (12.0-15.5); LYMPH # 1.9 10^3/uL (1.5-5.0); LYMPH % 37.4 % (24.0-44.0); MEAN CORPUSCULAR HEMOGLOBIN 21.6 pg (27.0-33.0); MEAN CORPUSCULAR HGB CONC 31.4 g/dl (32.0-36.5); MEAN CORPUSCULAR VOLUME 68.6 fl (80.0-96.0); MONO # 0.4 10^3/uL (0.0-0.8); MONO % 8.8 % (2.0-8.0); NEUTROPHILS # 2.4 10^3/uL (1.5-8.5); NEUTROPHILS % 48.8 % (36.0-66.0); PLATELET COUNT, AUTOMATED 190 10^3/uL (150-450); RED BLOOD COUNT 5.38 10^6/uL (4.00-5.40)
[2020-12-08 13:39] LABS: BLOOD UREA NITROGEN 12 MG/DL (7-18); CARBON DIOXIDE LEVEL 26 MEQ/L (21-32); CHLORIDE LEVEL 110 MEQ/L (98-107); GLOMERULAR FILTRATION RATE > 60.0 (>60); GLUCOSE, FASTING 70 MG/DL (70-100); HCG, SERUM QUANTITATIVE < 1.0 MIU/ML; POTASSIUM SERUM 3.9 MEQ/L (3.5-5.1); SODIUM LEVEL 143 MEQ/L (136-145)
[2020-12-08 17:11] VITALS: BP 99/54
== END 2020-12-08 17:21 | disposition home or self-care (01) ==
LOC: M ED 11:00
DX: T83.32XA Displacement of intrauterine contraceptive device, initial encounter (principal); Y92.9 Unspecified place or not applicable; Y93.89 Activity, other specified; F31.9 Bipolar disorder, unspecified; Z91.018 Allergy to other foods

== ENCOUNTER 2021-02-11 19:55 | Emergency (ER) | payer OTHER ==
[~2021-02-11] VITALS: Ht 157.5 cm; Wt 44.5 kg
[2021-02-11 19:56] VITALS: BP 100/59
[2021-02-11] MEDS ORDERED: ALBU83IN NEB (20:50)
== END 2021-02-12 05:41 | disposition left against medical advice (07) ==
LOC: M ED 19:55
DX: Z53.21 Procedure and treatment not carried out due to patient leaving prior to being seen by health care provider (principal)

== ENCOUNTER 2021-04-15 20:00 | Emergency (ER) | payer OTHER ==
[~2021-04-15] VITALS: Ht 157.5 cm; Wt 44.6 kg
[~2021-04-15 20:00] MED LIST changes: +ALBU83IN NEB
[2021-04-15 20:01] VITALS: BP 102/58
--- OUTSIDE RECORDS SUMMARY | 2021-04-15 20:08 | CCD ---
Author Author [facility] Organization [facility] Address Unknown Phone Unavailable Care Team Providers Care Clothing Patternmaker Name Role Phone CATY CASTRO Unavailable Unavailable GEN LINARES Unavailable Unavailable Italo LOGAN Unavailable Unavailable TRAVIS CLIFTON Unavailable Unavailable Re-disclosure Warning The records that you are about to access may contain information from federally-assisted alcohol or drug abuse programs. If such information is present, then the following federally mandated warning applies: This information has been disclosed to you from records protected by federal confidentiality rules (42 CFR part 2). The federal rules prohibit you from making any further disclosure of this information unless further disclosure is expressly permitted by the written consent of the person to whom it pertains or as otherwise permitted by 42 CFR part 2. A general authorization for the release of medical or other information is NOT sufficient for this purpose. The Federal rules restrict any use of the information to criminally investigate or prosecute any alcohol or drug abuse patient.The records that you are about to access may contain highly sensitive health information, the redisclosure of which is protected by Article 27-F of the [facility] Public Health law. If you continue you may have access to information: Regarding HIV / AIDS; Provided by facilities licensed or operated by the [facility] Office of Mental Health; or Provided by the [facility] Office for People With Developmental Disabilities. If such information is present, then the following [facility] mandated warning applies: This information has been disclosed to you from confidential records which are protected by state law. State law prohibits you from making any further disclosure of this information without the specific written consent of the person to whom it pertains, or as otherwise permitted by law. Any unauthorized further disclosure in violation of state law may result in a fine or fpc sentence or both. A general authorization for the release of medical or other information is NOT sufficient authorization for further disc losure. Allergies and Adverse Reactions Type Description Substance Reaction Status Data Source(s ) Propensity to adverse reactions NO KNOWN ALLERGIES NO KNOWN ALLERGIES [facility] Encounters Encounter Providers Location Date Indications Data Source(s ) Outpatient Attender: CONCEPCION LOGANReferrer: MARLO CLIFTON 04/06/2020 12:00:00 AM [facility] Outpatient Attender: GEN MILAGROSReferrer: MARLO CLIFTON [id number] 03/30/2020 12:00:00 AM [facility] Outpatient Attender: CONCEPCION LOGANReferrer: MARLO CLIFTON [id number] 03/30/2020 12:00:00 AM [facility] Encounter for procreative genetic counseling [facility] Encounter for procreative genetic counse ling Outpatient Attender: CATY CASTROReferrer: MARLO CLIFTON 03/30/2020 12:00:00 AM [facility] Medications No Information Insurance Providers Payer name Policy type / Coverage type Policy ID Covered democrat ID Covered democrat's relationship to cruz Policy Cruz Plan Information U [id number] Self [id number] U [id number] Self [id number] [facility] [id number] [facility] [id number] HUMANA [facility] O [id number] S [id number] O UNAVAILABLE UNAVAILA BLE [facility] [id number] SP [id number] Problems, Conditions, and Diagnoses Code Display Name Description Problem Type Effective Dates Data Source(s) Z53.21 Procedure and treatment not carried out due to patient leaving prior to being seen by health care provider Procedure and treatment not carried out due to patient leaving prior to being seen by health care provider Diagnosis 03/30/2020 10:10:24 AM [facility] O35.8XX0 Maternal care for other (edouard pected) abnormality and damage, not applicable or unspecified Maternal care for other (suspected) feta l abnormality and damage, not applicable or unspecified Diagnosis 03/30/2020 10:10:2 4 AM [facility] 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 Diagnosis 03/30/2020 10:10:24 AM [facility] Z31.5 Encounter for procreative genetic counse ling Encounter for procreative genetic counseling Diagnosis 03/30/2020 10:10:24 AM [facility] Surgeries/Procedures No Information Results ID Date Data Source [id number] 02/27/2021 12:00:00 AM EDT [facility] Name Value Range Interpretation Code Description Data Juani rce(s) Supporting Document(s) SARS-CoV2 Rapid Antigen Negative [facility] This lab was ordered by [facility] and reported by [facility]. ID Date Data Source [id number] 02/11/2021 08:35:00 PM EDT [facility] Name Value Range Interpretation Code Description Data Juani rce(s) Supporting Document(s) Respiratory pathogens identified [Type] in Nasopharynx by Probe and target amplification method SARS-CoV-2 (COVID 19) [facility] This lab was ordered by [facility] a nd reported by [facility]. ID Date Data Source [id number] 11/09/2020 09:37:00 PM EDT [facility] Name Value Range Interpretation Code Description Data Juani rce(s) Supporting Document(s) SARS-CoV-2 (COVID 19) NEGATIVE - SARS-CoV-2 (COVID19) [facility] This lab was ordered by [facility] a nd reported by [facility]. ID Date Data Source [id number] 04/06/2020 08:06:15 AM [facility] Name Value Range Interpretation Code Description Data Juani rce(s) Supporting Document(s) Progress Note [facility] HSYYBh9sEtCCCvOi75/EBTvzLDOur6HdQYlvPSt9LDdfQKMqU4JkSFZ8zJ6pBGN4LArHFdKsScQdXmGz lbm [file] C7Evt2XHXtUOLhCLPtZ5GqODMaFjAtBI5WVd9AZgF3VWT9kVVqPv3EYFu6TOhYIhEbFO7NRFv= ID Date Data Source [id number] 03/30/2020 01:59:29 PM [facility] Name Value Range Interpretation Code Description Data Juani rce(s) Supporting Document(s) Progress Note [facility] ASUAYj0kEvQHBuYj70/HQMtyZWEer9DwLWvuSFz4VOfsGOJhI2BpHXC4fZ6wWGH1HKoYZgXwZvVkXNC0 lbm GvWcwZYrSfDIEoVzuZUmHnKPfgSnoytBQkRX0EbMV5WMSuC02uGDSdZZMjX9DgFBNmWNz+Sw1OZRXkxP TmCB9PFweJ9G5fg2n8Ep0lyM2CypQmCsT1CT3LzeKQd5v2ZR206WEL7d9xW9k0Qe/61uu8/xwkId0MU7 F+3jSDxcq18vDGT3ZVl9P6e8AF5x/nZgIVIQ6sb1+X P9VKmy5P36t/gOE1yI98T/4kvilL5ar2cHpt+Pp5H56wgG1w3ldiIL9cHHHOl1lqv+Z+5sVm7+DObn7+ faiw5tMAp/kfChUBrZo3g0/tmiDN/MiO04d2q/Z+M4/3zMvW0/kwDEyPQ07ZTvSWxBTjn3QJzD5PkM1p DciTYvyCSVJvtK0bwHoFeBcF/Wit1ztyNdipteO5E4 uy4kUKr/udxJhqoMas0ctkgaiglmNSA5v37klzvvDoAg5Vk/+lMiEK5CF0/20wXhfNJwf5jBl 4KCQ2cc6SOOmzWtSJVG6Yy3Q0jLUflzRYISmXb+s6DHVOB9c6U+Dr/kMcyclt6DVo00ljMEBcxE9iEh+ lqMdu/ReQiFO53cSu2G1b0a5w0+DAuh0+7RVMUJVeI +sHBwSw/Gkgg4dT9dzG8uF6BEg7tJ/ObIc7Bk0lA2e5ss/bM9qt/Pje7/zF+QTnIl3iJRhS6mFTqIiyC MTNxxVfCV4goY2Y1DB1rIfc7bDgwyqS+6/Cwv9scXi4/aZF2WEQR3fqbOtMBguzpuVPMN+nuS34urjUQ cbgzMTCNyIKwbFi7iK0oMBVRy7Jp4DUHGOT4IIBWCs bsRFFGheEV/HNqhiElQ2xnS8ov6x3ff1wsmkZyUHuo/D2egHbRzzp6J4XfL5/6YJHBCk8ONu+PD/KZtq RaLm+7MlnmtHUtuv8i4qjOWJ/JYNeJMcfo9KEIqtV+DPMI8nGWzC2PB735qNJqwgEx+GbAE86Wxod3j3 UCm/VZFmF9ChYs/s5roKTQI/a9d0yRtcIWPtbD+dlo Rd2gQDE99bWr0NO7tmNmGie9LzxhrnMj6XCScY1pPGZPCZYqGIoBDeQ0FRXsOtO4Hv+esF9zHS5ZG4Xi AXRwZRdW7aKSkqLikdNsfYAgJiP8zBt1vBHZ9saEhem+a75xoTmnnTMrOdaQtIDTR6PLXjZVBrqLVkg4 9Pb70aIM1h3gm66QlCTmV+9h086kfNy6WsnuTnP5fN M/dZKHjFkU7tnIcPgCTHbhAJiS4oh5PJgL0ZHtN+nBc5l24OX9piu3QeP/Lm0p9rAlTL9akfd0tk+M9z 24v6iNtz4RyzXLVY2p67HIlrQ+GEKohugBKqjpcy5kwlf/f/O8t/Yf/kQ9o9XEt7Q0LooRa/fpLNckkC n8i4Zkr4VIq/O3UWzkS24I4MkIbrv2M0rZQ5pGxrSB q+PpfQErySluEu0X5f+l9ZtHrftfz3HFXNoN+3zErGkjY1aHVR3k9/uqopJwfbl1vzWx34+UKomUC8ZH p9V+AUwecch1tnRC+MqGektzH8y+sSDNdAfgxxWtnsNwG4jLmbyaYuXoTCbNrwth4cKHWha5dyl2Ir1B El9uFbP6tjxhHAKHWvkplcypIohtTkX4X8JFqi+Bgj +L5NWMAUaEue7DU1XWiM2TWGt5zmthTwK1RxHy4XyI+BVlX21ReMHw6oWDfrWxPIlCNYbaBPFX5JFAGC 0nhRDsjH50lkzzq82bHzwEUheHnVqXDSSSowLS6FENLhNrzbV6XX+CIp8+AJ0V5viAx1Rpm8re+Straw Hat Machine Operator/i [file] JfNsD9QKcqV9A0FUB8Qb4bPQSCDf4+TSzstREtiHzlVSDEVgF4WBEpRWfaKMPSVz8V ID Date Data Source [id number] 03/30/2020 11:49:30 AM [facility] Name Value Range Interpretation Code Description Data Juani rce(s) Supporting Document(s) Color of Urine [facility] Clarity of Urine [facility] Glucose [Mass/volume] in Urine by Test strip Negative [facility] Bilirubin.total [Presence] in Urine by Test strip Negative [facility] Ketones [Mass/volume] in Urine by Test strip [facility] Specific gravity of Urine by Test strip 1.020 1.005-1.025 [facility] Hemoglobin [Presence] in Urine by Test strip [facility] pH of Urine by Test strip 6.5 5.0-8.0 [facility] Protein [Mass/volume] in Urine by Test strip Negative [facility] Urobilinogen [Units/volume] in Urine by Test strip 0.2 {Ehrlich_U}/ dL 0.2-1.0 [facility] Nitrite [Presence] in Urine by Test strip Negative [facility] Leukocyte esterase [Presence] in Urine by Test strip Negat martine [facility] ID Date Data Source [id number] 02/29/2020 04:18:00 PM EDT [facility] Name Value Range Interpretation Code Description Data Juani rce(s) Supporting Document(s) SARS coronavirus 2 RNA [facility] This lab was ordered by [facility] and reported by [facility]. Procedure Social History No Information Vital Signs ID Date Data Source [id number] 04/04/2020 10:41:35 PM EST [facility] Name Value Range Interpretation Code Description Data Source(s) Body height Measured 62 in 62 in Upst [facility] WEIGHT RECORDED 102.2 lb 102.2 lb [facility]
--- OUTSIDE RECORDS SUMMARY | 2021-04-15 20:08 | CCD | Continuity of Care Document ---
Author Author Hanna MARCUS PA Organization Unknown Address [address] [place] [address] Phone [phone] Care Team Providers Care Crane Mechanic Name Role Phone Arcadio Hope MD AUTM Unavailable [facility] AUTM [phone] Problems Description No Information Available Social History Type Date Description Comments Sex Unknown Allergies and adverse reactions Description No Information Available Medications Description No Information Available Immunizations Description No Information Available Vital Signs Description No Information Available Results Description No Information Available Procedures Description No Information Available Medical Devices Description No Information Available Encounters Description No Information Available Assessments Description No Information Available Plan of Treatment No Information Available Functional Status Description No Information Available Mental Status Description No Information Available Referrals Refer to Reason for Referral Status Appt Jabier Hampton JR., M.D. Created [address] [place] [address] [place] [address] [phone]
--- OUTSIDE RECORDS SUMMARY | 2021-04-15 20:08 | CCD | Continuity of Care Document ---
Author Author Hanna MARCUS Organization Unknown Address [address] [place] [address] Phone [phone] Care Team Providers Care Shank Rander Name Role Phone Arcadio Hope MD AUTM Unavailable [facility] AUTM Problems Description No Information Available Social History Type Date Description Comments Sex Unknown Allergies and adverse reactions Description No Information Available Medications Description No Information Available Immunizations Description No Information Available Vital Signs Description No Information Available Results Description No Information Available Procedures Description No Information Available Medical Devices Description No Information Available Encounters Description No Information Available Assessments Date Code Description Provider 02/27/2021 Z20.828 Contact with and (cerna spected) exposure to other viral communicable diseases LORRIE Galo Plan of Treatment No Information Available Functional Status Description No Information Available Mental Status Description No Information Available Referrals Refer to Reason for Referral Status Appt Date Jabier Hampton JR., M.D. Created [address] [place] [address] [place] [address] [phone]
--- OUTSIDE RECORDS SUMMARY | 2021-04-15 23:44 | CCD ---
Author Author [facility] Organization [facility] Address Unknown Phone Unavailable Care Team Providers Care Store Management Trainee Name Role Phone CATY CASTRO Unavailable Unavailable [...] is protected by Article 27-F of the [facility] Public Health law. If you continue you may have access to information: Regarding HIV / AIDS; Provided by facilities licensed or operated by the [facility] Office of Mental Health; or Provided by the [facility] Office for People With Developmental Disabilities. If such information is present, then the following [facility] mandated warning applies: This information [...] law may result in a fine or mcc sentence or both. A general authorization for the release of medical or other information is NOT sufficient authorization for further disc losure. Allergies and Adverse Reactions Type Description Substance Reaction Status Data Source(s ) Propensity to adverse reactions NO KNOWN ALLERGIES NO KNOWN ALLERGIES [facility] Encounters Encounter Providers Location Date Indications Data Source(s ) Outpatient Attender: CONCEPCION LOGANReferrer: MARLO CLIFTON 04/06/2020 12:00:00 AM [facility] Outpatient Attender: GEN MILAGROSReferrer: MARLO CLIFTON [id number] 03/30/2020 12:00:00 AM [facility] Outpatient Attender: CONCEPCION LOGANReferrer: MARLO CLIFTON [id number] 03/30/2020 12:00:00 AM [facility] Encounter for procreative genetic counseling [facility] Encounter for procreative genetic counse ling Outpatient Attender: CATY CASTROReferrer: MARLO CLIFTON 03/30/2020 12:00:00 AM [facility] Medications No Information Insurance Providers Payer name Policy type / Coverage type Policy ID Covered democrat ID Covered democrat's relationship to cruz Policy Cruz Plan Information U [id number] Self [id number] U [id number] Self [id number] [facility] [employer] [facility] [id number] [facility] [id number] [employer]MANA [facility] O [id number] S [id number] O UNAVAILABLE UNAVAILA BLE [facility] [id number] SP [id number] Problems, Conditions, and Diagnoses Code Display Name Description Problem Type Effective Dates Data Source(s) Z53.21 Procedure and treatment not carried out due to patient leaving prior to being seen by health care provider Procedure and treatment not carried out due to patient leaving prior to being seen by health care provider Diagnosis 03/30/2020 10:10:24 AM [facility] O35.8XX0 Maternal care for other (edouard pected) abnormality and damage, not applicable or unspecified Maternal care for other (suspected) feta l abnormality and damage, not applicable or unspecified Diagnosis 03/30/2020 10:10:2 4 AM [facility] 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 Diagnosis 03/30/2020 10:10:24 AM [facility] Z31.5 Encounter for procreative genetic counse ling Encounter for procreative genetic counseling Diagnosis 03/30/2020 10:10:24 AM [facility] Surgeries/Procedures No Information Results ID Date Data Source [id number] 02/27/2021 12:00:00 AM EDT [facility] Name Value Range Interpretation Code Description Data Juani rce(s) Supporting Document(s) SARS-CoV2 Rapid Antigen Negative [facility] This lab was ordered by [facility] and reported by [facility]. ID Date Data Source [id number] 02/11/2021 08:35:00 PM EDT [facility] Name Value Range Interpretation Code Description Data Juani rce(s) Supporting Document(s) Respiratory pathogens identified [Type] in Nasopharynx by Probe and target amplification method SARS-CoV-2 (COVID 19) [facility] This lab was ordered by [facility] a nd reported by [facility]. ID Date Data Source [id number] 11/09/2020 09:37:00 PM EDT [facility] Name Value Range Interpretation Code Description Data Juani rce(s) Supporting Document(s) SARS-CoV-2 (COVID 19) NEGATIVE - SARS-CoV-2 (COVID19) [facility] This lab was ordered by [facility] a nd reported by [facility]. ID Date Data Source [id number] 04/06/2020 08:06:15 AM [facility] Name Value Range Interpretation Code Description Data Juani rce(s) Supporting Document(s) Progress Note [facility] TIZGFv7oXeANJfSg88/EQCowGEMiq6GlJRciDSr3BOlaSNTuB8QmKIA3zB1rUMH6BAgYRnIaZyEjQfQz lbm [file] P1Qwx4EYGcFKIbVUOuL1UnIQJwBsTfQK2QFm7OTdU0OMK6dWVbSy5JXXh3HSnKDdGrNR6NACt= ID Date Data Source [id number] 03/30/2020 01:59:29 PM [facility] Name Value Range Interpretation Code Description Data Juani rce(s) Supporting Document(s) Progress Note [facility] FKDEPo6xJpMANeNh75/YEDmbPRLuh9UkHDqlIQb0WUrzMSPnX5CvUUF6kM0vXSC7USpKTwYaDjPwEWM6 lbm QlOqxGAsPsDOGxRipZBpNzWEyfBjnaxWIlCD9EvKK8EZCbE21pJMUpLMNhU7ZiCUKtXZg+Zq7YJPBqeK FzSX7PBziX2I7fq4a2Py6gkG5UaaJrLmK0GU9QlhOFf3i2HW042EXK3a5tG0h2Gr/61uu8/cjpPo3PC4 F+0oHPhzg02aESC3FSb6L1a1PH8b/yZaWHEY4he5+X B6NIqp0T92r/lKK8oD43L/2awfaK0qf3xHvq+Ux2G65blJ4l9eksPE0rSCIYa2gcp+Z+5sVm7+DObn7+ rgus6nUOr/vpLwPBoNw7w9/tmiDN/CnP60q3y/Z+M4/3zMvW0/puMTlBC41SIeYDmBWdj3EFjP5XiT8w MyuCClvLSTUxlM4xzCsStOfQ/Ujz1nfcLoiycbN6P9 eo1dLYi/zkqZgaqWxu7udcgphidlLWX7g60hpucfLaDx8Sv/+gLeES0DF5/27fGyaTVfw3zPh 0TPG4ss5PFNbbMmENIZ8Ws0M5iCLoxaOKGDzPa+v2HGYUK2t5B+Dr/hBzoukp6FDt40zgNTUajV8iHe+ lqMdu/UrRqOI18sYy4I9e0e2f8+DAuh0+7RVMUJVeI +sHBwSw/Kipk3wH5ziL0nK7KFp3kX/EnCd0Bh3oN3x4xp/bM9qt/Pje7/zF+GXvIj9rKRpP5iNInRraV EVIqbQhGG4heU6C9CE6sPay2cTlrqnX+6/Chv5eiLj0/qLL8DJCA8mcbUkTEeqkzcJVTY+uiW75wigKO sfihRPANpITjeYm7zZ8wJMUSw2Uk8USYFCM1UCDAGs bsRFFGheEV/GCxehViA5muP8pe2f8wg3walvHqVIqe/F1uqHrQouc6F7EdO9/7RYNXSi7OCu+PD/KZtq RaLm+7KtsvvSCqny2a4xxGIZ/YFRtWWtfu5EVZdqR+YSVH0pLJyA9JV795uIUhgjYn+MeAO41Qsav2x2 UCm/UVDsX1XjIw/h7zcRUFR/o0n1xPggTNPegY+dlo Xt3jKTV04jCn9SV7zwQuEoa3RcntukWi8VUTvZ7uVZLAPHCuZBwFFyI0RUOkUdD9Wv+vbX3jPZ8QA9Rt LGArFAbO9oELkwVmgdMgkFRhTbS4wJf6yACX6qyGiek+y28hnJsbbGGsPhmRxBTQE5TUOmWQWtwETfq3 2Rh55wHU4y8jh88KqFGjT+4t138wjOb4PkovLnZ2mN M/fYZQdTlO6yqVvHyRTYypXHvO3aw7SMdK2IIxS+hKq4d80JB4rre8AfO/Ps7d9tBcCO3jver3zk+M9z 97t3yGxr6JiwMJAH2l54CWbvX+CLAdbubMRtpeep8lhch/f/O8t/Yf/lU1o9YXk9G2RyiMz/fpLNckkC a0z9Drx1LWa/W2ZSfxO28F8WvPlgl6K4sPT3eUnmGR q+EruCGauIblVq9J4b+r6WjQdgnup1QNBVpH+1kKzFbqZ8oWQH9m0/tvfjOdttp0oxNx71+GSarAC7TB p9V+GKiuhne2mrFU+RiWieqvS4c+mRYGoAdizvSzjtRkM3oErxyvHlUyNFnMmclh4bRIPtf0myb4Zc8O Mr7dScY4hwsqGWKFVweqwxvtOkhuGxL0B9BUjx+Bgj +R7YKVCQzRjh6AT7WVpZ7IJVb3nvpcSsT1LqDu1ZqC+UXwD44HgVQb6yGBysYxCNoTSAazWZAK2IRQFH 2aoLJslA72vubfi92rFlwYRffNrCfFRYVVsfDX2HCMTqEnpdQ6XB+CIp8+LO9R5ulKx6Ket5hg+Crossing Flagman/i [file] UwMkY6EHunA7Z7LTB2Sd5aMHSZUp3+KBvouDKlfYcrKJHTKvJ6KICuGJspYIAVPy2I ID Date Data Source [id number] 03/30/2020 11:49:30 AM [facility] Name Value Range Interpretation Code Description Data Juani rce(s) Supporting Document(s) Color of Urine [facility] Clarity of Urine [facility] Glucose [Mass/volume] in Urine by Test strip Negative [facility] Bilirubin.total [Presence] in Urine by Test strip Negative [facility] Ketones [Mass/volume] in Urine by Test strip [facility] Specific gravity of Urine by Test strip 1.020 1.005-1.025 [facility] Hemoglobin [Presence] in Urine by Test strip [facility] pH of Urine by Test strip 6.5 5.0-8.0 [facility] Protein [Mass/volume] in Urine by Test strip Negative [facility] Urobilinogen [Units/volume] in Urine by Test strip 0.2 {Ehrlich_U}/ dL 0.2-1.0 [facility] Nitrite [Presence] in Urine by Test strip Negative [facility] Leukocyte esterase [Presence] in Urine by Test strip Negat martine [facility] ID Date Data Source [id number] 02/29/2020 04:18:00 PM EDT [facility] Name Value Range Interpretation Code Description Data Juani rce(s) Supporting Document(s) SARS coronavirus 2 RNA [facility] This lab was ordered by [facility] and reported by [facility]. Procedure Social History No Information Vital Signs ID Date Data Source [id number] 04/04/2020 10:41:35 PM EST [facility] Name Value Range Interpretation Code Description Data Source(s) Body height Measured 62 in 62 in [facility] WEIGHT RECORDED 102.2 lb 102.2 lb [facility]
== END 2021-04-15 23:45 | disposition left against medical advice (07) ==
LOC: M ED 20:00
DX: Z53.21 Procedure and treatment not carried out due to patient leaving prior to being seen by health care provider (principal)

== ENCOUNTER 2021-05-09 09:04 | Emergency (ER) | payer OTHER ==
[~2021-05-09] VITALS: Ht 160 cm; Wt 44.5 kg
[2021-05-09] MEDS ORDERED: NS 1,000 ML IV SCH (09:10)
[2021-05-09] MEDS ORDERED: ACETAMINOPHEN 500 MG TAB PO ONE (09:20)
[2021-05-09] MEDS ORDERED: PROMETHAZINE INJ 25 MG/ML VIAL (J2550) IV ONE (09:20)
[2021-05-09 09:49] LABS: BASO % 0.4 % (0.0-1.0); EOS # 0.3 10^3/uL (0.0-0.5); EOS % 3.4 % (0.0-3.0); HEMATOCRIT 35.7 % (36.0-47.0); HEMOGLOBIN 11.1 g/dl (12.0-15.5); LYMPH # 1.5 10^3/uL (1.5-5.0); LYMPH % 20.1 % (24.0-44.0); MEAN CORPUSCULAR HEMOGLOBIN 21.1 pg (27.0-33.0); MEAN CORPUSCULAR HGB CONC 31.1 g/dl (32.0-36.5); MONO # 0.5 10^3/uL (0.0-0.8); MONO % 6.6 % (2.0-8.0); NEUTROPHILS # 5.3 10^3/uL (1.5-8.5); NEUTROPHILS % 69.2 % (36.0-66.0); PLATELET COUNT, AUTOMATED 179 10^3/uL (150-450); RED BLOOD COUNT 5.25 10^6/uL (4.00-5.40); WHITE BLOOD COUNT 7.7 10^3/uL (4.0-10.0)
[2021-05-09 10:17] LABS: ALBUMIN 3.6 GM/DL (3.2-5.2); ALT/SGPT 47 U/L (12-78); BILIRUBIN,TOTAL 0.5 MG/DL (0.2-1.0); BLOOD UREA NITROGEN 8 MG/DL (7-18); CALCIUM LEVEL 8.5 MG/DL (8.5-10.1); CARBON DIOXIDE LEVEL 25 MEQ/L (21-32); CHLORIDE LEVEL 109 MEQ/L (98-107); GLOMERULAR FILTRATION RATE > 60.0 (>60); GLUCOSE, FASTING 99 MG/DL (70-100); LIPASE 58 U/L (73-393); POTASSIUM SERUM 3.4 MEQ/L (3.5-5.1); SODIUM LEVEL 141 MEQ/L (136-145); TOTAL PROTEIN 6.5 GM/DL (6.4-8.2)
[2021-05-09] MEDS ORDERED: KETOROLAC 30 MG/ML 1ML VIAL IV ONE (10:30)
[2021-05-09] MEDS ORDERED: ISOVUE-370 76% 100ML VIAL As Ordered ONE (10:56)
[2021-05-09 10:57] LABS: RSV AMPLIFICATION NEGATIVE (NEGATIVE)
[2021-05-09] MEDS ORDERED: KETAMINE HCL IV ONE (13:00)
[2021-05-09] MEDS ORDERED: NS IV ONE (13:00)
[2021-05-09] MEDS ORDERED: cloNIDine 0.2 MG TAB PO ONE (13:35)
[2021-05-09 15:14] VITALS: BP 96/52
== END 2021-05-09 15:33 | disposition home or self-care (01) ==
LOC: EDBD 09:04 → M ED 09:04
DX: D57.3 Sickle-cell trait (principal); R52 Pain, unspecified; I45.19 Other right bundle-branch block; Z91.018 Allergy to other foods
CPT/HCPCS: 71045; 71275; 80053; 83615; 83690; 84702; 85025; 85046; 87040; 87077; 87631; 93005; 93041; 94760; 96361; 96365; 99285; J1885; Q9967

== ENCOUNTER 2021-08-19 16:44 | Outpatient (CLI) | payer OTHER ==
[~2021-08-19] VITALS: Ht 157.5 cm; Wt 44.2 kg
[2021-08-19] MEDS ORDERED: HOME MED LIST COMPLETE! XX SCH (17:25)
[2021-08-19 17:29] VITALS: BP 116/59
[2021-08-19] MEDS ORDERED: FLUCONAZOLE 50MG TABLET PO ONE (19:00)
== END 2021-08-19 19:05 ==
LOC: M LDO 16:44
PROVIDERS: ATTEND Obstetrics & Gynecology
DX: O23.592 Infection of other part of genital tract in pregnancy, second trimester (principal); Z3A.17 17 weeks gestation of pregnancy; O09.32 Supervision of pregnancy with insufficient antenatal care, second trimester
CPT/HCPCS: 76815; G0378

== ENCOUNTER 2021-09-10 17:03 | Outpatient (CLI) | payer OTHER ==
[~2021-09-10] VITALS: Ht 157.5 cm; Wt 47.0 kg
[2021-09-10 17:19] VITALS: BP 100/59
[2021-09-10] MEDS ORDERED: ACETAMINOPHEN 500 MG TAB PO ONE (17:30)
[2021-09-10] MEDS ORDERED: FLUCONAZOLE 50MG TABLET PO ONE (18:35)
[2021-09-10 18:40] LABS: HEMATOCRIT 29.8 % (36.0-47.0); HEMOGLOBIN 9.4 g/dl (12.0-15.5); MEAN CORPUSCULAR HEMOGLOBIN 21.4 pg (27.0-33.0); MEAN CORPUSCULAR HGB CONC 31.5 g/dl (32.0-36.5); MEAN CORPUSCULAR VOLUME 67.9 fl (80.0-96.0); PLATELET COUNT, AUTOMATED 299 10^3/uL (150-450); RED BLOOD COUNT 4.39 10^6/uL (4.00-5.40); WHITE BLOOD COUNT 9.8 10^3/uL (4.0-10.0)
[2021-09-10 18:46] LABS: APPEARANCE, URINE CLEAR (CLEAR); BACTERIA, URINE AUTO NEGATIVE (NEGATIVE); BILIRUBIN, URINE AUTO NEGATIVE (NEGATIVE); BLOOD, URINE BLOOD NEGATIVE (NEGATIVE); COLOR, URINE YELLOW (YELLOW); GLUCOSE, URINE (UA) AUTO NEGATIVE (NEGATIVE); KETONE, URINE AUTO NEGATIVE (NEGATIVE); LEUKOCYTE ESTERASE, URINE AUTO NEGATIVE (NEGATIVE); MUCUS, URINE SMALL (NEGATIVE); NITRITE, URINE AUTO NEGATIVE (NEGATIVE); PROTEIN, URINE AUTO NEGATIVE (NEGATIVE); RBC, URINE AUTO 0 /HPF (0-3); SPECIFIC GRAVITY URINE AUTO 1.016 (1.002-1.035); SQUAMOUS EPITHELIAL CELL UR AU 0 /HPF (0-6); WBC, URINE AUTO 0 /HPF (0-3)
[2021-09-10 20:09] LABS: GC DNA AMPLIFICATION NEGATIVE (NEGATIVE)
[2021-09-11 09:54] LABS: HEPATITIS B SURFACE ANTIGEN NEGATIVE (NEGATIVE); HIV 1&2 SCREEN CENTAUR NEGATIVE (NEGATIVE)
== END 2021-09-10 18:46 ==
LOC: M LDO 17:03
PROVIDERS: ATTEND Advanced Practice Midwife
DX: O36.8120 Decreased fetal movements, second trimester, not applicable or unspecified (principal); Z3A.20 20 weeks gestation of pregnancy; O26.892 Other specified pregnancy related conditions, second trimester; M54.50 Low back pain, unspecified; R10.2 Pelvic and perineal pain; O99.512 Diseases of the respiratory system complicating pregnancy, second trimester; J45.909 Unspecified asthma, uncomplicated; O99.012 Anemia complicating pregnancy, second trimester; D57.3 Sickle-cell trait; D56.0 Alpha thalassemia; O32.1XX0 Maternal care for breech presentation, not applicable or unspecified; N89.8 Other specified noninflammatory disorders of vagina; Z91.02 Food additives allergy status; Z11.3 Encounter for screening for infections with a predominantly sexual mode of transmission; Z72.89 Other problems related to lifestyle
CPT/HCPCS: 36415; 76815; 81001; 85027; 86762; 86780; 86787; 86850; 86870; 86900; 86901; 87086; 87340; 87389; 87661; 87810; 87850; G0378; G0463

== ENCOUNTER 2021-09-10 18:56 | Emergency (ER) | payer OTHER ==
[2021-09-10 19:45] VITALS: BP 106/65
[2021-09-10 20:07] LABS: ACETAMINOPHEN LEVEL 3.4 UG/ML (10.0-30.0); ALBUMIN 2.6 GM/DL (3.2-5.2); ALT/SGPT 20 U/L (12-78); BILIRUBIN,DIRECT < 0.1 MG/DL (0.0-0.2); BILIRUBIN,TOTAL 0.2 MG/DL (0.2-1.0); BLOOD UREA NITROGEN 6 MG/DL (7-18); CALCIUM LEVEL 8.3 MG/DL (8.5-10.1); CARBON DIOXIDE LEVEL 25 MEQ/L (21-32); CHLORIDE LEVEL 109 MEQ/L (98-107); CREATININE FOR GFR 0.53 MG/DL (0.55-1.30); ETHYL ALCOHOL (ETHANOL) < 0.003 % (0.000-0.010); GLOMERULAR FILTRATION RATE > 60.0 (>60); GLUCOSE, FASTING 76 MG/DL (70-100); POTASSIUM SERUM 3.5 MEQ/L (3.5-5.1); SALICYLATE LEVEL < 1.7 MG/DL (5.0-30.0); SODIUM LEVEL 140 MEQ/L (136-145); THYROID STIMULATING HORMONE 0.621 uIU/ML (0.358-3.740); TOTAL PROTEIN 6.5 GM/DL (6.4-8.2)
[2021-09-10 20:16] LABS: AMPHETAMINES LEVEL URINE NEGATIVE (NEGATIVE); BARBITURATES URINE NEGATIVE (NEGATIVE); BENZODIAZEPINES URINE NEGATIVE (NEGATIVE); CANNABINOIDS URINE NEGATIVE (NEGATIVE); COCAINE METABOLITE URINE NEGATIVE (NEGATIVE); METHADONE URINE NEGATIVE (NEGATIVE); OPIATES URINE NEGATIVE (NEGATIVE); PHENCYCLIDINE URINE NEGATIVE (NEGATIVE)
== END 2021-09-10 23:12 | disposition home or self-care (01) ==
LOC: M ED 18:56
DX: Z04.6 Encounter for general psychiatric examination, requested by authority (principal); O99.519 Diseases of the respiratory system complicating pregnancy, unspecified trimester; O99.119 Other diseases of the blood and blood-forming organs and certain disorders involving the immune mechanism complicating pregnancy, unspecified trimester; O99.340 Other mental disorders complicating pregnancy, unspecified trimester; Z3A.00 Weeks of gestation of pregnancy not specified; Z91.02 Food additives allergy status

== ENCOUNTER → 2021-09-23 | Outpatient (REF) | LOC: M LAB REF 10:09 | PROVIDERS: ATTEND Obstetrics & Gynecology Obstetrics | DX: Z36.89 Encounter for other specified antenatal screening (principal) ==

== ENCOUNTER 2021-11-15 18:08 | Emergency (ER) | payer OTHER ==
[~2021-11-15] VITALS: Ht 157.5 cm; Wt 120.0 kg
[~2021-11-15 18:08] MED LIST changes: +ALBU2.5V10 NEB; -ALBU83IN NEB
[2021-11-15 18:20] VITALS: BP 100/51
== END 2021-11-15 18:39 | disposition admitted as inpatient to this hospital (09) ==
LOC: EDBD 18:08 → M ED 18:08
DX: S29.9XXA Unspecified injury of thorax, initial encounter (principal); W10.8XXA Fall (on) (from) other stairs and steps, initial encounter; Y92.018 Other place in single-family (private) house as the place of occurrence of the external cause; J45.909 Unspecified asthma, uncomplicated; D57.1 Sickle-cell disease without crisis; Z91.018 Allergy to other foods

== ENCOUNTER 2021-11-15 18:41 | Outpatient (CLI) | payer OTHER ==
[~2021-11-15] VITALS: Ht 157.5 cm; Wt 50.1 kg
[2021-11-15 18:55] VITALS: BP 131/58
[2021-11-15 19:24] LABS: HEMOGLOBIN 8.2 g/dl (12.0-15.5); MEAN CORPUSCULAR HEMOGLOBIN 19.4 pg (27.0-33.0); MEAN CORPUSCULAR HGB CONC 30.4 g/dl (32.0-36.5); PLATELET COUNT, AUTOMATED 161 10^3/uL (150-450); RED BLOOD COUNT 4.22 10^6/uL (4.00-5.40); WHITE BLOOD COUNT 7.3 10^3/uL (4.0-10.0)
[2021-11-15] MEDS ORDERED: LR 1,000 ML IV ONE (20:05)
[2021-11-15 21:28] VITALS: BP 112/54
[2021-11-15] MEDS ORDERED: TERBUTALINE SULFATE 1 MG/ML VIAL (J3105) SC STA (22:12)
[2021-11-15 22:20] VITALS: BP 107/50
[2021-11-15 22:48] VITALS: BP 105/51
[2021-11-15 23:54] VITALS: BP 123/59
== END 2021-11-16 00:05 | disposition home or self-care (01) ==
LOC: M LDO 18:41
PROVIDERS: ATTEND Obstetrics & Gynecology
DX: O9A.213 Injury, poisoning and certain other consequences of external causes complicating pregnancy, third trimester (principal); S30.1XXA Contusion of abdominal wall, initial encounter; W10.8XXA Fall (on) (from) other stairs and steps, initial encounter; Y92.009 Unspecified place in unspecified non-institutional (private) residence as the place of occurrence of the external cause; Z3A.29 29 weeks gestation of pregnancy; O99.013 Anemia complicating pregnancy, third trimester; D57.3 Sickle-cell trait; D50.9 Iron deficiency anemia, unspecified; Z91.51 Personal history of suicidal behavior
CPT/HCPCS: 36415; 59025; 76815; 76817; 76820; 85027; 85460; G0463; J3105

== ENCOUNTER 2021-11-22 18:53 | Outpatient (CLI) | payer OTHER ==
[~2021-11-22] VITALS: Ht 157.5 cm; Wt 50.3 kg
[2021-11-22 19:14] VITALS: BP 100/57
== END 2021-11-22 21:20 | disposition home or self-care (01) ==
LOC: M LDO 18:53
PROVIDERS: ATTEND Obstetrics & Gynecology
DX: O47.03 False labor before 37 completed weeks of gestation, third trimester (principal); Z3A.30 30 weeks gestation of pregnancy; O99.513 Diseases of the respiratory system complicating pregnancy, third trimester; J45.909 Unspecified asthma, uncomplicated; O99.013 Anemia complicating pregnancy, third trimester; D57.3 Sickle-cell trait
CPT/HCPCS: 59025; 76815; G0463

== ENCOUNTER 2021-12-17 14:00 | Outpatient (CLI) | payer OTHER ==
[~2021-12-17] VITALS: Ht 160 cm; Wt 52.8 kg
[2021-12-17 14:17] VITALS: BP 100/59
[2021-12-17] MEDS ORDERED: IRON27TA2 PO (15:06)
[2021-12-17] MEDS ORDERED: HOME MED LIST COMPLETE! XX SCH (15:10)
[2021-12-17] MEDS ORDERED: FAMOTIDINE 20 MG TAB PO ONE (15:10)
[2021-12-17] MEDS ORDERED: FLUCONAZOLE 50MG TABLET PO ONE (15:10)
[2021-12-17 15:48] LABS: HEMATOCRIT 25.8 % (36.0-47.0); HEMOGLOBIN 7.6 g/dl (12.0-15.5); MEAN CORPUSCULAR HEMOGLOBIN 18.2 pg (27.0-33.0); MEAN CORPUSCULAR HGB CONC 29.5 g/dl (32.0-36.5); MEAN CORPUSCULAR VOLUME 61.7 fl (80.0-96.0); PLATELET COUNT, AUTOMATED 181 10^3/uL (150-450); RED BLOOD COUNT 4.18 10^6/uL (4.00-5.40); WHITE BLOOD COUNT 9.7 10^3/uL (4.0-10.0)
== END 2021-12-17 16:40 | disposition home or self-care (01) ==
LOC: M LDO 14:00
PROVIDERS: ATTEND Obstetrics & Gynecology
DX: O36.8130 Decreased fetal movements, third trimester, not applicable or unspecified (principal); Z3A.34 34 weeks gestation of pregnancy; O99.013 Anemia complicating pregnancy, third trimester; D57.3 Sickle-cell trait; D56.0 Alpha thalassemia; O99.513 Diseases of the respiratory system complicating pregnancy, third trimester; J45.909 Unspecified asthma, uncomplicated; O99.613 Diseases of the digestive system complicating pregnancy, third trimester; K21.9 Gastro-esophageal reflux disease without esophagitis; O23.593 Infection of other part of genital tract in pregnancy, third trimester
CPT/HCPCS: 36415; 59025; 76811; 76819; 76820; 85027; G0378; G0463

== ENCOUNTER 2021-12-23 20:43 | Emergency (ER) | payer OTHER ==
[~2021-12-23] VITALS: Ht 157.5 cm; Wt 54.5 kg
[~2021-12-23 20:43] MED LIST changes: +IRON27TA2 PO
[2021-12-23 22:06] LABS: HEMATOCRIT 24.6 % (36.0-47.0); HEMOGLOBIN 7.3 g/dl (12.0-15.5); MEAN CORPUSCULAR HEMOGLOBIN 18.1 pg (27.0-33.0); MEAN CORPUSCULAR HGB CONC 29.7 g/dl (32.0-36.5); MEAN CORPUSCULAR VOLUME 60.9 fl (80.0-96.0); PLATELET COUNT, AUTOMATED 175 10^3/uL (150-450); RED BLOOD COUNT 4.04 10^6/uL (4.00-5.40); WHITE BLOOD COUNT 8.9 10^3/uL (4.0-10.0)
[2021-12-23 22:25] LABS: AMPHETAMINES LEVEL URINE NEGATIVE (NEGATIVE); BARBITURATES URINE NEGATIVE (NEGATIVE); BENZODIAZEPINES URINE NEGATIVE (NEGATIVE); CANNABINOIDS URINE NEGATIVE (NEGATIVE); COCAINE METABOLITE URINE NEGATIVE (NEGATIVE); METHADONE URINE NEGATIVE (NEGATIVE); OPIATES URINE NEGATIVE (NEGATIVE); PHENCYCLIDINE URINE NEGATIVE (NEGATIVE)
[2021-12-23 22:34] LABS: RSV AMPLIFICATION NEGATIVE (NEGATIVE)
[2021-12-23 22:36] LABS: ACETAMINOPHEN LEVEL < 2.0 UG/ML (10.0-30.0); ALBUMIN 2.4 GM/DL (3.2-5.2); ALT/SGPT 18 U/L (12-78); BILIRUBIN,DIRECT 0.1 MG/DL (0.0-0.2); BILIRUBIN,TOTAL 0.3 MG/DL (0.2-1.0); BLOOD UREA NITROGEN 3 MG/DL (7-18); CALCIUM LEVEL 7.8 MG/DL (8.5-10.1); CARBON DIOXIDE LEVEL 23 MEQ/L (21-32); CHLORIDE LEVEL 109 MEQ/L (98-107); ETHYL ALCOHOL (ETHANOL) < 0.003 % (0.000-0.010); GLOMERULAR FILTRATION RATE > 60.0 (>60); GLUCOSE, FASTING 72 MG/DL (70-100); POTASSIUM SERUM 3.5 MEQ/L (3.5-5.1); SALICYLATE LEVEL < 1.7 MG/DL (5.0-30.0); SODIUM LEVEL 139 MEQ/L (136-145); TOTAL PROTEIN 5.8 GM/DL (6.4-8.2)
[2021-12-24 00:40] VITALS: BP 115/56
== END 2021-12-24 00:51 | disposition home or self-care (01) ==
LOC: EDBD 20:43 → M ED 20:43
DX: F43.0 Acute stress reaction (principal); O99.013 Anemia complicating pregnancy, third trimester; O36.8130 Decreased fetal movements, third trimester, not applicable or unspecified; O99.343 Other mental disorders complicating pregnancy, third trimester; Z91.018 Allergy to other foods

== ENCOUNTER 2022-01-03 11:20 | Outpatient (CLI) | payer OTHER ==
[~2022-01-03] VITALS: Ht 157.5 cm; Wt 54.8 kg
[2022-01-03 11:44] VITALS: BP 101/56
[2022-01-03] MEDS ORDERED: MULTCHW14 PO (11:50)
[2022-01-03] MEDS ORDERED: HOME MED LIST COMPLETE! XX SCH (12:00)
[2022-01-03 13:29] VITALS: BP 104/59
[2022-01-03 14:51] LABS: HEMATOCRIT 25.7 % (36.0-47.0); HEMOGLOBIN 7.6 g/dl (12.0-15.5); MEAN CORPUSCULAR HEMOGLOBIN 17.8 pg (27.0-33.0); MEAN CORPUSCULAR HGB CONC 29.6 g/dl (32.0-36.5); PLATELET COUNT, AUTOMATED 212 10^3/uL (150-450); RED BLOOD COUNT 4.28 10^6/uL (4.00-5.40); WHITE BLOOD COUNT 7.6 10^3/uL (4.0-10.0)
[2022-01-03 15:16] LABS: BLOOD UREA NITROGEN 5 MG/DL (7-18); CALCIUM LEVEL 8.4 MG/DL (8.5-10.1); CARBON DIOXIDE LEVEL 21 MEQ/L (21-32); CHLORIDE LEVEL 108 MEQ/L (98-107); CREATININE FOR GFR 0.62 MG/DL (0.55-1.30); GLOMERULAR FILTRATION RATE > 60.0 (>60); GLUCOSE, FASTING 84 MG/DL (70-100); POTASSIUM SERUM 3.6 MEQ/L (3.5-5.1); SODIUM LEVEL 137 MEQ/L (136-145)
[2022-01-03 15:18] VITALS: BP 88/52
[2022-01-03 15:26] VITALS: BP 96/51
[2022-01-03 16:22] VITALS: BP 88/49
[2022-01-03 17:34] LABS: AMPHETAMINES URINE REFLEX NEGATIVE (NEGATIVE); BARBITURATES URINE REFLEX NEGATIVE (NEGATIVE); BENZODIAZEPINES URINE REFLEX NEGATIVE (NEGATIVE); COCAINE METABOLITE URINE REFLE NEGATIVE (NEGATIVE); METHADONE URINE REFLEX NEGATIVE (NEGATIVE); OPIATES URINE REFLEX NEGATIVE (NEGATIVE); PHENCYCLIDINE URINE REFLEX NEGATIVE (NEGATIVE)
[2022-01-03 17:53] LABS: CANNABINOIDS URINE REFLEX PENDING CONFIRMATION (NEGATIVE)
[2022-01-03 19:49] LABS: GC DNA AMPLIFICATION NEGATIVE (NEGATIVE)
== END 2022-01-03 17:07 | disposition home or self-care (01) ==
LOC: M LDO 11:20
PROVIDERS: ATTEND Obstetrics & Gynecology
DX: O47.03 False labor before 37 completed weeks of gestation, third trimester (principal); Z3A.36 36 weeks gestation of pregnancy; O26.893 Other specified pregnancy related conditions, third trimester; R42 Dizziness and giddiness; M79.604 Pain in right leg; M79.605 Pain in left leg; O99.893 Other specified diseases and conditions complicating puerperium; H53.8 Other visual disturbances; O99.613 Diseases of the digestive system complicating pregnancy, third trimester; K59.00 Constipation, unspecified; O46.93 Antepartum hemorrhage, unspecified, third trimester; Z91.02 Food additives allergy status
CPT/HCPCS: 36415; 59025; 80048; 80307; 85027; 87086; 87810; 87850; G0378; G0463; G0480

== ENCOUNTER 2022-01-10 17:40 | Outpatient (CLI) | payer OTHER ==
[~2022-01-10] VITALS: Ht 157.5 cm; Wt 56.0 kg
[~2022-01-10 17:40] MED LIST changes: +MULTCHW14 PO
[2022-01-10 18:04] VITALS: BP 102/51
[2022-01-10] MEDS ORDERED: HOME MED LIST COMPLETE! XX SCH (18:05)
[2022-01-10 19:09] VITALS: BP 118/57
== END 2022-01-10 19:33 | disposition home or self-care (01) ==
LOC: M LDO 17:40
PROVIDERS: ATTEND Registered Nurse
DX: O47.1 False labor at or after 37 completed weeks of gestation (principal); Z3A.37 37 weeks gestation of pregnancy; Z91.018 Allergy to other foods
CPT/HCPCS: 59025; 76815; 87081; G0463

== ENCOUNTER 2022-01-12 22:50 | Outpatient (CLI) | payer OTHER ==
[~2022-01-12] VITALS: Ht 157.5 cm; Wt 56.0 kg
[2022-01-12 23:03] VITALS: BP 117/59
== END 2022-01-12 23:55 | disposition home or self-care (01) ==
LOC: M LDO 22:50
PROVIDERS: ATTEND Obstetrics & Gynecology
DX: O47.1 False labor at or after 37 completed weeks of gestation (principal); Z3A.37 37 weeks gestation of pregnancy; O99.013 Anemia complicating pregnancy, third trimester; D57.3 Sickle-cell trait; O99.513 Diseases of the respiratory system complicating pregnancy, third trimester; J45.909 Unspecified asthma, uncomplicated; Z91.19 Patient's noncompliance with other medical treatment and regimen
CPT/HCPCS: 59025; G0463

== ENCOUNTER 2022-01-15 17:07 | Inpatient (IN) | payer OTHER ==
[2022-01-15] VITALS (22 sets, daily range): BP systolic 103–144; BP diastolic 54–82
[~2022-01-15] VITALS: Ht 157.5 cm; Wt 56.0 kg
[2022-01-15] MEDS ORDERED: LACTATED RINGER'S 1000 ML IV STA (17:38)
[2022-01-15] MEDS ORDERED: LR 1,000 ML IV SCH ×2 (17:40→22:35)
[2022-01-15] MEDS ORDERED: METHYLERGONOVINE MALEATE 0.2 MG/ML VIAL (J2210) IM PRN (17:40)
[2022-01-15] MEDS ORDERED: OXYTOCIN DRIP 30 UNITS in IV 1 EA IV PRN (17:40)
[2022-01-15] MEDS ORDERED: LIDOCAINE 1% MDV 20ML VIAL INFIL PRN (17:40)
[2022-01-15] MEDS ORDERED: CARBOPROST TROMETHAMINE 250 MCG/ML AMP IM PRN (17:40)
[2022-01-15] MEDS ORDERED: TRANEXAMIC ACID INJection 1,000 MG in NS 100 ML IV PRN (17:40)
[2022-01-15 18:29] LABS: BASO % 0.3 % (0.0-1.0); EOS # 0.1 10^3/uL (0.0-0.5); EOS % 0.5 % (0.0-3.0); HEMATOCRIT 28.6 % (36.0-47.0); HEMOGLOBIN 8.3 g/dl (12.0-15.5); LYMPH # 1.9 10^3/uL (1.5-5.0); MEAN CORPUSCULAR VOLUME 58.6 fl (80.0-96.0); MONO # 0.8 10^3/uL (0.0-0.8); MONO % 9.1 % (2.0-8.0); NEUTROPHILS # 6.2 10^3/uL (1.5-8.5); NEUTROPHILS % 67.9 % (36.0-66.0); PLATELET COUNT, AUTOMATED 217 10^3/uL (150-450); RED BLOOD COUNT 4.88 10^6/uL (4.00-5.40); WHITE BLOOD COUNT 9.2 10^3/uL (4.0-10.0)
[2022-01-15] MEDS ORDERED: ONDANSETRON 4MG 2ML VIAL IV PRN (18:35)
[2022-01-15] MEDS ORDERED: LR 500 ML IV PRN (18:35)
[2022-01-15] MEDS ORDERED: FENTANYL/ROPIVACAINE/NACL BAG 100 ML EPIDURAL SCH (18:35)
[2022-01-15] MEDS ORDERED: diphenhydrAMINE 50MG/ML VIAL (J1200) IV PRN (18:35)
[2022-01-15] MEDS ORDERED: ePHEDrine SULFATE 25 MG/5 ML(5MG/ML) SYRINGE IVP PRN (18:35)
[2022-01-15] MEDS ORDERED: NALOXONE INJ 0.4MG/1ML VIAL (J2310 PER 1MG) IV PRN (18:35)
[2022-01-15] MEDS ORDERED: EPIDURAL/PCA KEYS XX PRN (18:35)
[2022-01-15 19:05] LABS: BLOOD UREA NITROGEN 4 MG/DL (7-18); CALCIUM LEVEL 8.4 MG/DL (8.5-10.1); CARBON DIOXIDE LEVEL 21 MEQ/L (21-32); CHLORIDE LEVEL 108 MEQ/L (98-107); CREATININE FOR GFR 0.74 MG/DL (0.55-1.30); GLOMERULAR FILTRATION RATE > 60.0 (>60); GLUCOSE, FASTING 60 MG/DL (70-100); SODIUM LEVEL 138 MEQ/L (136-145)
[2022-01-15] MEDS ORDERED: METHYLERGONOVINE MALEATE 0.2 MG TAB PO PRN (22:35)
[2022-01-15] MEDS ORDERED: DIBUCAINE 1% OINTMENT 30GM TOP PRN (22:35)
[2022-01-15] MEDS ORDERED: MOM 30ML SUSPENSION UDC PO PRN (22:35)
[2022-01-15] MEDS ORDERED: ACETAMINOPHEN TAB 650MG DOSE (2X325MG) PO PRN (22:35)
[2022-01-15] MEDS ORDERED: IBUPROFEN 800 MG TAB PO PRN (22:35)
[2022-01-15] MEDS ORDERED: RHOGAM 300 MCG (1500 IU) INJ (J2790) IM SCH (22:35)
[2022-01-15] MEDS ORDERED: ANUSOL HC CREAM 30GM TOP PRN (22:35)
[2022-01-15] MEDS ORDERED: ACETAMINOPHEN 500 MG TAB PO PRN (22:35)
[2022-01-16] VITALS (9 sets, daily range): BP systolic 92–124; BP diastolic 57–71
[2022-01-16] MEDS: IBUPROFEN 600MG TAB PO PRN (06:16)
[2022-01-16 06:34] LABS: MEAN CORPUSCULAR HEMOGLOBIN 17.7 pg (27.0-33.0); MEAN CORPUSCULAR HGB CONC 29.7 g/dl (32.0-36.5); MEAN CORPUSCULAR VOLUME 59.5 fl (80.0-96.0); PLATELET COUNT, AUTOMATED 196 10^3/uL (150-450); RED BLOOD COUNT 3.51 10^6/uL (4.00-5.40); WHITE BLOOD COUNT 16.5 10^3/uL (4.0-10.0)
[2022-01-16 06:38] LABS: HEMATOCRIT 20.9 % (36.0-47.0); HEMOGLOBIN 6.2 g/dl (12.0-15.5)
[2022-01-16] MEDS: DOCUSATE SODIUM 100MG CAPSULE PO SCH ×2 (09:32→20:20)
[2022-01-16] MEDS: PRENATAL VITAMINS CHEWABLE TABLET PO SCH (09:32)
[2022-01-16] MEDS: oxyCODONE 5MG TAB PO PRN ×3 (09:35→23:33)
[2022-01-16] MEDS ORDERED: LIDOCAINE 1% MDV 20ML VIAL SC ONE (13:40)
[2022-01-17 06:00] VITALS: BP 104/56
[2022-01-17] MEDS ORDERED: COLA100C5 PO (07:07)
[2022-01-17] MEDS ORDERED: IBUP80TA PO (07:07)
[2022-01-17] MEDS ORDERED: ACET-683 PO (07:07)
[2022-01-17] MEDS: PRENATAL VITAMINS CHEWABLE TABLET PO SCH (08:54)
[2022-01-17] MEDS: DOCUSATE SODIUM 100MG CAPSULE PO SCH (08:54)
[2022-01-17] MEDS: oxyCODONE 5MG TAB PO PRN ×2 (08:58→15:55)
[2022-01-17] MEDS ORDERED: BOOSTRIX/ADACEL VACCINE (DIPHTH/PERTUSS/ACELL/TETANUS) 0.5ML SYR IM.IMMUN ONE (09:00)
[2022-01-17] MEDS ORDERED: MEASLES,MUMPS,RUBELLA VACCINE INJ (MMR-II) (90707) SC.IMMUN ONE (09:00)
[2022-01-17] MEDS: IBUPROFEN 600MG TAB PO PRN (15:54)
[2022-01-17 18:00] VITALS: BP 98/58
== END 2022-01-17 18:40 | disposition home or self-care (01) | DRG 768 ==
LOC: M LDO 17:07 → M LDI 17:19 → M OBS 01-16 01:35
PROVIDERS: ADMIT Obstetrics & Gynecology; ATTEND Obstetrics & Gynecology
PROC: 0DQR0ZZ Repair Anal Sphincter, Open Approach (ICD-10-PCS; principal; 2022-01-15)
PROC: 10D07Z3 Extraction of Products of Conception, Low Forceps, Via Natural or Artificial Opening (ICD-10-PCS; 2022-01-15)
PROC: 0JHF3HZ Insertion of Contraceptive Device into Left Upper Arm Subcutaneous Tissue and Fascia, Percutaneous Approach (ICD-10-PCS; 2022-01-16)
DX: O70.20 Third degree perineal laceration during delivery, unspecified (principal); Z37.0 Single live birth; Z3A.38 38 weeks gestation of pregnancy; Z91.19 Patient's noncompliance with other medical treatment and regimen; Z30.017 Encounter for initial prescription of implantable subdermal contraceptive; Z30.2 Encounter for sterilization